=== PATIENT | female | born 1960 | race Caucasian/White ===

== ENCOUNTER 2019-07-17 06:35 | Emergency (ER) | payer BC, MEDICARE ==
[~2019-07-17] VITALS: Ht 172.7 cm; Wt 80.0 kg
[~2019-07-17 06:35] MED LIST: ALBU18HF2 IH; AMIT-189 PO; ASPI-611 PO; CARI250T PO; MORP15TA PO; MORP30TA PO; NORCO10T PO; PANT40TA39 PO; PHEN-786 PO; SUCR1ORA2 PO; ZOC40T PO; vancomycin PO
[2019-07-17] MEDS ORDERED: MUPI22OI30 TOP (07:40)
[2019-07-17 08:23] VITALS: BP 150/66
[2019-07-17 08:33] LABS: CLARITY,URINE CLEAR (Clear); COLOR,URINE YELLOW (Yellow)
[2019-07-17 08:34] LABS: UA COLLECTION TYPE CLN CATCH MIDSTREAM
[2019-07-17 08:44] LABS: SQUAMOUS EPITHELIAL CELL,UR MODERATE /LPF (FEW)
[2019-07-17 08:45] LABS: WBC,URINE 0-4 /HPF (0-4)
[2019-07-17 08:46] LABS: BACTERIA,URINE NONE SEEN /HPF (Neg)
== END 2019-07-17 09:41 | disposition home or self-care (01) ==
LOC: ER 06:37
DX: F22 Delusional disorders (principal); L98.8 Other specified disorders of the skin and subcutaneous tissue; E78.00 Pure hypercholesterolemia, unspecified; K21.9 Gastro-esophageal reflux disease without esophagitis; E11.9 Type 2 diabetes mellitus without complications; G89.29 Other chronic pain; Z90.49 Acquired absence of other specified parts of digestive tract; Z98.890 Other specified postprocedural states; Z88.8 Allergy status to other drugs, medicaments and biological substances; Z79.82 Long term (current) use of aspirin; Z79.899 Other long term (current) drug therapy
CPT/HCPCS: 71045; 81001; 99284

== ENCOUNTER 2023-11-06 12:28 | Emergency (ER) | payer MEDICARE ==
[~2023-11-06] VITALS: Ht 165.1 cm; Wt 83.8 kg
[~2023-11-06 12:28] MED LIST changes: -AMIT-189 PO; +AMIT-311 PO; +BACL10TA2 PO; -CARI250T PO; +CETI10TA14 PO; +MONT-40 PO; -MORP30TA PO; -NORCO10T PO; +ONDA4TAB12 PO; -SUCR1ORA2 PO; -ZOC40T PO; -vancomycin PO
[2023-11-06 14:08] LABS: BASOPHILS % (AUTO) 0.2 % (0-1); EOSINOPHILS % (AUTO) 0.2 % (0-6); HEMATOCRIT 39.3 % (35.0-45.0); HEMOGLOBIN 13.2 g/dl (12.0-16.0); LYMPHOCYTES # (AUTO) 0.9 X10'3 (1.1-4.8); LYMPHOCYTES % (AUTO) 14.6 % (21-51); MEAN CORPUSCULAR HEMOGLOBIN 33.6 PG (27.0-31.0); MEAN CORPUSCULAR HGB CONC 33.5 g/dL (33.0-36.5); MEAN CORPUSCULAR VOLUME 100.3 FL (78-98); MEAN PLATELET VOLUME 8.6 FL (7.4-10.4); MONOCYTES # (AUTO) 0.3 X10'3 (0-0.9); MONOCYTES % (AUTO) 4.9 % (2-12); NEUTROPHILS # (AUTO) 5.1 X10'3 (1.8-7.7); NEUTROPHILS % (AUTO) 80.1 % (42-75); PLATELET COUNT 117 X10'3 (140-440); RED BLOOD COUNT 3.92 X10'6 (4.20-5.60); RED CELL DISTRIBUTION WIDTH 13.9 % (11.5-14.5); WHITE BLOOD COUNT 6.4 X10'3 (4.5-11.0)
[2023-11-06 14:32] LABS: ALANINE AMINOTRANSFERASE 33 U/L (12-78); ALBUMIN 4.2 G/DL (3.4-5.0); ALBUMIN/GLOBULIN RATIO 1.1 (1.1-1.5); ALKALINE PHOSPHATASE 117 IU/L (46-116); ANION GAP 8 (8-16); ASPARTATE AMINO TRANSFERASE 27 U/L (10-37); BILIRUBIN,DIRECT 0.3 MG/DL (0-0.3); BILIRUBIN,TOTAL 1.3 MG/DL (0.1-1.0); BLOOD UREA NITROGEN 11 MG/DL (7-18); BUN/CREATININE RATIO 15.7 (10.0-20.0); C-REACTIVE PROTEIN 0.71 MG/DL (0.0-0.5); CALCIUM 9.2 MG/DL (8.5-10.1); CHLORIDE 101 MMOL/L (99-107); ETHANOL < 10 MG/DL (<10); GLUCOSE 263 MG/DL (70-104); POTASSIUM 4.1 MMOL/L (3.5-5.1); SODIUM 138 MMOL/L (135-145); TOTAL CARBON DIOXIDE 29.2 MMOL/L (24-32); TOTAL PROTEIN 8.1 G/DL (6.4-8.2); eCRCL 75 ML/MIN; eGFR 85 ML/MIN
[2023-11-06 15:24] LABS: BILIRUBIN,URINE NEGATIVE (Neg); CLARITY,URINE SLIGHTLY CLOUDY (Clear); COLOR,URINE YELLOW (Yellow); GLUCOSE, URINE >=1000 mg/dl (Neg); KETONES,URINE 15 mg/dl (Neg); LEUKOCYTE ESTERASE ,URINE NEGATIVE (Neg); OCCULT BLOOD,URINE TRACE-INTACT (Neg); PROTEIN,URINE NEGATIVE (Neg)
[2023-11-06 15:27] LABS: UA COLLECTION TYPE VOIDED
[2023-11-06 15:29] LABS: URINE AMPHETAMINE SCREEN NEGATIVE (Neg); URINE BARBITUATE SCREEN NEGATIVE (Neg); URINE BENZODIAZEPINES SCREEN NEGATIVE (Neg); URINE CANNABINOID SCREEN NEGATIVE (Neg); URINE COCAINE SCREEN NEGATIVE (Neg); URINE METHADONE SCREEN NEGATIVE (Neg); URINE OPIATE SCREEN POSITIVE (Neg); URINE PHENCYCLIDINE SCREEN NEGATIVE (Neg)
[2023-11-06 15:53] LABS: NITRITES, URINE NEGATIVE (Neg)
[2023-11-06 15:56] LABS: SQUAMOUS EPITHELIAL CELL,UR MODERATE /LPF (FEW); WBC,URINE 0-4 /HPF (0-4)
[2023-11-06 16:00] LABS: BACTERIA,URINE FEW /HPF (Neg)
[2023-11-06 16:02] LABS: TRANSITIONAL EPI CELLS,URINE FEW /HPF
[2023-11-06 17:04] VITALS: BP 137/83; PULSE 89; RESP 18; TEMP 98.4; O2SAT 95
== END 2023-11-06 16:55 | disposition home or self-care (01) ==
LOC: ER 12:30
DX: T40.601A Poisoning by unspecified narcotics, accidental (unintentional), initial encounter (principal); E78.00 Pure hypercholesterolemia, unspecified; K21.9 Gastro-esophageal reflux disease without esophagitis; E11.9 Type 2 diabetes mellitus without complications; Z88.4 Allergy status to anesthetic agent; Z88.8 Allergy status to other drugs, medicaments and biological substances; Z79.899 Other long term (current) drug therapy; Z79.82 Long term (current) use of aspirin; Z79.2 Long term (current) use of antibiotics; Z98.890 Other specified postprocedural states; Y92.89 Other specified places as the place of occurrence of the external cause
CPT/HCPCS: 36415; 70450; 71045; 80048; 80076; 80305; 80320; 81001; 83605; 84484; 85025; 86140; 87040; 93005; 99285

== ENCOUNTER → 2025-07-21 | Outpatient (CLI) | payer MEDICARE ==
[~2025-07-21] MED LIST changes: +ONDA-243 PO; -ONDA4TAB12 PO
--- NOTE | 2025-07-21 15:56 | RADIOLOGY REPORT ---
CLINICAL INFORMATION: Low-back pain. Radiculopathy. TECHNIQUE: Multisequence multiplanar MRI images of the lumbar spine were obtained without contrast. COMPARISON: None INTERPRETATION: Minimal retrolisthesis of L3 on L4 and L4 on L5. Vertebral body heights are maintained. Posterior elements are intact. Prominent Schmorl's node at the inferior endplate of L3. Mild marrow edema adjacent to the schmorl's node, may suggest an acute or subacute component of the Schmorl's node. Visualized spinal cord and cauda equina are within normal limits. The conus medullaris is appropriate in signal at the T12-L1 level. [id number] fatty atrophy of the paraspinal musculature in the lower lumbosacral spine. L1-L2: Disc desiccation. No significant spinal canal or neural foraminal stenosis. Small bilateral facet joint effusions. L2-L3: Disc desiccation. Mild disc bulge mildly indenting the ventral aspect of the thecal sac. No significant spinal canal stenosis. Facet hypertrophy with mild bilateral neural foraminal stenoses. L3-L4: Disc desiccation with mild disc space narrowing and diffuse disc bulge mildly indenting the ventral aspect of the thecal sac and mildly effacing the lateral recesses bilaterally. Facet hypertrophy with [id number] bilateral neural foraminal stenoses. L4-L5: Disc desiccation with moderate disc space narrowing. Mild disc bulge mildly indenting the ventral aspect of the thecal sac. No significant spinal canal stenosis. Facet hypertrophy with mild to moderate bilateral neural foraminal stenoses, left slightly greater than right. L5-S1: Disc desiccation. No significant spinal canal or neural foraminal stenosis. IMPRESSION: 1. Degenerative disc disease and facet disease in the lumbar spine with associated neural foraminal stenoses as described above. No significant spinal canal stenosis. 2. Prominent Schmorl's node at the inferior endplate of L3 with mild adjacent marrow edema, May suggest an acute or subacute component of the Schmorl's node. 3. Minimal retrolisthesis of L3 on L4 and L4 on L5. 4. Additional findings as described above.
--- NOTE | 2025-07-21 16:15 | RADIOLOGY REPORT ---
EXAM: MR MRI C SPINE INDICATION: RADICULOPATHY, CERVICAL REGION, CERVICALGIA TECHNIQUE: Multiplanar, multisequence imaging of the cervical spine without contrast. COMPARISON: MR MRI LUMBAR SPINE on DOS: 07/21/25 FINDINGS: [ANATOMY]: Cervical lordosis is maintained. [BONES]: The vertebral bodies are normal in height, alignment, and marrow signal. [CERVICAL CORD]: The cervical cord is normal in signal and morphology. [DISCS]: Diffuse disc desiccation. intervertebral disc height loss at C5-6 and C6-7. [FACETS]: Asymmetric mild to moderate left facet arthropathy in the left midcervical spine. [OTHER]: There is no prevertebral soft tissue swelling. The visualized paraspinal soft tissues are normal. [C2-C3]: Unremarkable. [C3-C4]: Left lateral recess 2 mm broad-based disc protrusion with uncovertebral spurring contributing to left lateral recess stenosis [C4-C5]: Ligamentum flavum buckling. Broad-based posterior disc protrusion with asymmetric left inferior foraminal extension. Mild left foraminal narrowing. [C5-C6]: Asymmetric mild left foraminal narrowing. Ligamentum flavum buckling. Uncovertebral spurring with circumferential disc bulge with 2 mm posterior extension most conspicuous of the right paracentral to central location. [C6-C7]: Intervertebral disc height loss with circumferential disc bulge/posterior disc osteophyte complex measuring 3 mm. Trace ligamentum flavum buckling. [C7-T1]: Unremarkable. IMPRESSION: 1. No acute fracture or subluxation. 2. Multilevel cervical spondylosis. 3. C5-6: Left lateral recess stenosis. 4. C6-7: Mild left foraminal narrowing.
== END | disposition home or self-care (01) ==
LOC: MRI02 09:29
PROVIDERS: ATTEND Anesthesiology Pain Medicine
DX: M47.26 Other spondylosis with radiculopathy, lumbar region (principal); M47.22 Other spondylosis with radiculopathy, cervical region; M50.11 Cervical disc disorder with radiculopathy, high cervical region; M48.061 Spinal stenosis, lumbar region without neurogenic claudication; M51.16 Intervertebral disc disorders with radiculopathy, lumbar region; M48.02 Spinal stenosis, cervical region; M48.8X7 Other specified spondylopathies, lumbosacral region; M25.78 Osteophyte, vertebrae; M54.50 Low back pain, unspecified
CPT/HCPCS: 72141; 72148